=== PATIENT | male | born 1985 | race Caucasian/White ===

== ENCOUNTER 2018-03-20 11:37 | Emergency (ER) | payer SELFPAY ==
[2018-03-20 11:37] VITALS: BP 135/80; PULSE 81; RESP 20; TEMP 36.6; O2SAT 98; BMI 25.3
--- NOTE | 2018-03-20 11:48 | CT_ITS ---
STUDY: CT ABDOMEN AND PELVIS WITHOUT CONTRAST REASON FOR EXAM: Male, 32 years old. Left flank pain, urinary retention, history of renal stones RADIATION DOSAGE (If Supplied By Facility): CTDIvol = ( 6.73 ) mGy, DLP = ( 322.79 ) mGycm TECHNIQUE: Transaxial images were obtained from the dome of the diaphragm to the symphysis pubis without oral contrast, and without intravenous contrast. Sagittal and coronal images were reconstructed. Individualized dose optimization techniques were used for this CT. COMPARISON: None. FINDINGS: The visualized lung bases are unremarkable. The visualized portions of the heart are within normal limits. Evaluation of the abdominal viscera is limited in the absence of intravenous contrast. Normal liver. Normal gallbladder and extrahepatic biliary system. Normal spleen. Normal pancreas. Normal bilateral adrenal glands. There are at least 2, 1 to 2 mm nonobstructing calculi within the right kidney. A 2 to 3 mm calculus is seen within the left mid to lower pole. There is mild left hydronephrosis. The left ureter is slightly prominent. A 2 to 3 mm calculus is noted at the left ureterovesical junction. Normal visualized stomach. Normal small intestine. Normal colon. The appendix is visualized and appears normal. Normal abdominal aorta. Normal inferior vena cava. There is borderline retroperitoneal lymphadenopathy with enlarged nodes no greater than 10mm in the short axis diameter. Normal urinary bladder. Normal abdominal wall. Normal osseous structures. CT/Abdomen/Pelvis without Cont IMPRESSION: Obstructing calculus at the left ureterovesical junction with mild left hydronephrosis. Additional nonobstructing bilateral ureteral calculi. Electronically Signed: Abraham Orellana DO at 12:51 EDT Tel , Service support ,
[2018-03-20] MEDS: Ondansetron 4 MG/2 ML Vial IV (11:56)
[2018-03-20] MEDS: Ketorolac 30 MG/ML Syringe IV (11:56)
[2018-03-20] MEDS: Morphine 4 MG/ML Syringe IV (11:56)
[2018-03-20] MEDS: 0.9% Normal Saline 1,000 ML 250 ML IV (11:56)
[2018-03-20 12:07] LABS: Absolute Lymphocyte Count 1.02 X10^3/ul (0.83-4.51); Basophil# 0.03 X10^3/uL; Basophil% 0.2 % (0-1); Eosinophil# 0.04 X10^3/uL; Eosinophils% 0.3 % (0-5); Hematocrit 45.1 % (40-54); Hemoglobin 14.9 g/dl (13.0-16.5); Lymphocyte # 1.02 X10^3/ul (4.0); Lymphocyte % 7.4 % (19-41); Mean Corpuscular Hgb 29.7 pg (27.0-32.0); Mean Platelet Vol. 11.2 fl (6.2-12.0); Monocyte# 0.66 X10^3/uL; Monocyte% 4.8 % (0-10); Neutrophil # 11.98 X10^3/uL (2.7-7.7); Neutrophil % 87.2 % (47-70); POSITIVE COUNT NO; POSITIVE DIFFERENTIAL NO; POSITIVE MORPHOLOGY NO; Platelet Count 159 K/mm3 (150-450); RBC Distribution Width CV 13.5 % (11.6-14.6); Red Blood Count 5.01 M/mm3 (4.6-6.2); White Blood Count 13.8 K/mm3 (4.4-11.0)
[2018-03-20 12:08] LABS: Color, Urine Yellow (Yellow); Glucose, Dipstick Normal (Normal); Ketone-Dipstick Negative (Negative); Leukocyte Esterase-Dipstick 25 /ul (Negative); Nitrite-Dipstick Negative (Negative); Occult Blood-Urine 150 /ul (Negative); Protein-Dipstick 15 mg/dl (Negative); Urine Bilirubin Dipstick Negative (Negative); Urine Clarity Clear (Clear); Urine Urobilinogen 1 mg/dl (Normal)
[2018-03-20 12:16] LABS: Anion Gap 4 (5-15); BUN 11 mg/dL (7-18); BUN/Creat Ratio 6.6 RATIO (10-20); Calcium,Total 9.1 mg/dL (8.5-10.1); Chloride 107 mmol/L (98-107); Creatinine, Serum 1.67 mg/dL (0.70-1.30); EST Glomerular Filtration Rate 51 mL/min (>60); Est Glom Filt Rate - Afr Amer 62 mL/min (>60); Estimated Creatinine Clearance 72.43 ml/min; Glucose 122 mg/dL (74-106); Potassium 4.1 mmol/L (3.5-5.1); Sodium Level 140 mmol/L (136-145)
[2018-03-20 12:21] LABS: Bacteria 1+ /hpf (None Seen); Red Blood Cells-Urine 0-5 SEEN /hpf (0-5); Squamous Epithelial Cells - UA 0-5 SEEN /hpf (0-5); White Blood Cells 0-5 SEEN /hpf (0-5)
[2018-03-20 12:22] LABS: Mucous, Urine 2+ /hpf (<or=2+)
--- NOTE | 2018-03-20 12:52 | ED.DCSUM_ITS ---
- ER Visit Summary Date of Service: 03/20/18 Chief Complaint: Flank pain History of Present Illness: The patient is a 32 M who states he has a history of kidney stones. He states that last week he has slight discomfort in the left flank which resolved. This morning he noted severe pain in the left flank and in the left suprapubic region with radiation to the testicle. He went to urgent care where he had a dip urine that was positive for blood. He was sent to the emergency room. He is has a history of pyloric stenosis with surgical correction as an infant. He is not currently see a doctor. Physical Examination: Afebrile vital signs are stable Gen: Well-nourished well-developed and appears in pain Head: Normocephalic atraumatic Eyes: Perrl EOMI ENT: TMs clear no rhinorrhea moist mucous membranes Neck: Supple no lymphadenopathy no JVD nontender CVS: Regular rate rhythm no murmurs normal S1-S2 Respiratory: No distress clear to auscultation bilaterally chest nontender Abdomen: Soft nontender nondistended normal bowel sounds no masses Back: Left CVA tenderness Extremity: Nontender no edema Skin: Normal color no rash Neuro: alert orientated ?3 CN II-XII intact normal strength sensation reflexes gait cerebellar Psych: Normal affect normal mood Test Results: White count 13.8. Creatinine 1.67 glucose 122. Urinalysis 1+ bacteria 05 white cells 0-5 red cells 0-5 epithelial cells negative nitrates CT of the abdomen pelvis demonstrated a distal ureteral stone with associated hydronephroureter Emergency Department Course and Treatment: She received IV fluids Toradol Zofran and morphine. His pain is improved. Patient will be discharged home to have urologic follow-up. I will write for oxycodone and Flomax. Urine culture will be sent. Impression: 1. Left distal ureteral stone with colic This note was generated with [employer] dictation software. It may contain incorrect words, spelling, and punctuation that were not noted in review of the chart prior to signing ED Disposition - Plan for ED Patient: Disposition: Home or Assisted Living Chief Complaint: Flank Pain Instructions: ED Stone Renal W Colic Prescriptions: Oxycodone [Oxyir] 5 - 10 mg PO Q6H PRN PRN 3 Days #20 tab PRN Reason: Pain Tamsulosin HCl [Flomax] 0.4 mg PO DAILY #7 cap Referrals: Michael Cantu MD [STAFF PHYSICIAN] - (call to arrange follow up appointment)
[2018-03-20 13:13] VITALS: BP 122/85; PULSE 84; RESP 16
== END 2018-03-20 13:14 | disposition home or self-care (01) ==
PROVIDERS: Emergency Provider Emergency Medicine
DX: N13.2 Hydronephrosis with renal and ureteral calculous obstruction (principal); Z87.442 Personal history of urinary calculi; Z87.738 Personal history of other specified (corrected) congenital malformations of digestive system
CPT/HCPCS: 74176; 80048; 81001; 85025; 96361; 96374; 96375; 99283; J7030; J2405